=== PATIENT | female | born 1960 | race Caucasian/White ===

== ENCOUNTER 2021-12-22 08:09 | Outpatient (CLI) | payer BC, SELFPAY ==
[2021-12-22 13:40] LABS: Albumin* 4.2 g/dL (3.3-5.0)
[2021-12-22 13:43] LABS: Alanine Aminotransferase* 35 U/L (4-35); Alkaline Phosphatase* 129 U/L (40-150); Aspartate Amino Transferase* 34 U/L (12-35); Bilirubin Direct* 0.3 mg/dL (0.0-0.5); Bilirubin Total* 0.5 mg/dL (0.1-1.5); Total Protein* 7.1 g/dL (6.0-8.3)
[2021-12-22 13:48] LABS: Cholesterol* 190 mg/dL (90-199)
[2021-12-22 13:49] LABS: HDL Cholesterol* 41 mg/dL (>=50); LDL Cholesterol Calculated 110 mg/dL (<100); Triglycerides* 194 mg/dL (40-149)
== END 2021-12-22 08:10 | disposition home or self-care (01) ==
LOC: LKVREF 08:10
PROVIDERS: PCP Family Medicine; Visit Provider Family Medicine
DX: E78.5 Hyperlipidemia, unspecified (principal); R79.89 Other specified abnormal findings of blood chemistry
CPT/HCPCS: 80061; 80076

== ENCOUNTER 2022-03-28 16:46 | Outpatient (CLI) | payer BC, SELFPAY | END 2022-03-28 16:47 | disposition home or self-care (01) | LOC: LKVREF 03-30 11:09 | PROVIDERS: PCP Family Medicine; Visit Provider Emergency Medicine | DX: R30.0 Dysuria (principal); N39.0 Urinary tract infection, site not specified | CPT/HCPCS: 87086; 87186 ==

== ENCOUNTER 2022-05-23 10:25 | Outpatient (CLI) | payer BC, SELFPAY | END 2022-05-23 10:26 | disposition home or self-care (01) | LOC: LKVREF 05-30 13:05 | PROVIDERS: PCP Family Medicine; Visit Provider Nurse Practitioner Family | DX: R30.0 Dysuria (principal); N39.0 Urinary tract infection, site not specified | CPT/HCPCS: 87086 ==

== ENCOUNTER 2022-08-12 10:01 | Outpatient (CLI) | payer BC, SELFPAY ==
--- NOTE | 2022-08-12 10:15 | CRLHL7_ITS ---
For Patients: As a result of the Century Cures Act, medical imaging exams and procedure reports are released immediately into your electronic medical record. You may view this report before your referring provider. If you have questions, please contact your health care provider. BILATERAL SCREENING MAMMOGRAM WITH COMPUTER-AIDED DETECTION AND TOMOSYNTHESIS TECHNIQUE: CC and MLO views were obtained. These mammographic images have been obtained using full-field digital technique. These mammographic images were interpreted with the benefit of computer-aided detection. Breast Tomosynthesis was used in this interpretation. COMPARISON FILM: 05/13/21, 05/11/18, 04/21/17. FINDINGS: There are scattered areas of fibroglandular density IMPRESSION: There is no radiographic evidence for malignancy. ASSESSMENT: BI-RADS Category 1: Negative RECOMMENDATION: Routine screening mammogram in 1 year. A lay language report of this examination will be provided to the patient. Mauro Block M.D. Diagnostic Radiologist [email or web address] MARTINE/Dictated by: Mauro Block MD @ 08/12/2022 1:24:00 PM (Electronically Signed)
== END 2022-08-12 10:02 | disposition home or self-care (01) ==
LOC: MAMMO 10:03
PROVIDERS: PCP Family Medicine; Visit Provider Registered Nurse
DX: Z12.31 Encounter for screening mammogram for malignant neoplasm of breast (principal)
CPT/HCPCS: 77063; 77067

== ENCOUNTER 2022-12-07 17:28 | Outpatient (CLI) | payer BC, SELFPAY | END 2022-12-07 17:29 | disposition home or self-care (01) | LOC: NFLDREF 12-08 11:03 | PROVIDERS: PCP Family Medicine; Referring Provider Family Medicine; Visit Provider Family Medicine | DX: R31.9 Hematuria, unspecified (principal); N39.0 Urinary tract infection, site not specified; N30.01 Acute cystitis with hematuria | CPT/HCPCS: 87086 ==

== ENCOUNTER 2023-01-29 09:08 | Outpatient (CLI) | payer BC, SELFPAY | END 2023-01-29 09:09 | disposition home or self-care (01) | LOC: NFLDREF 01-30 01:06 | PROVIDERS: PCP Family Medicine; Referring Provider Family Medicine; Visit Provider Nurse Practitioner Family | DX: R35.89 Other polyuria (principal); N30.91 Cystitis, unspecified with hematuria | CPT/HCPCS: 87086 ==

== ENCOUNTER 2023-02-02 10:01 | Outpatient (CLI) | payer BC, SELFPAY | END 2023-02-02 10:02 | disposition home or self-care (01) | LOC: LKVREF 10:03 | PROVIDERS: PCP Family Medicine; Visit Provider Family Medicine | DX: Z00.00 Encounter for general adult medical examination without abnormal findings (principal); E78.5 Hyperlipidemia, unspecified; R79.89 Other specified abnormal findings of blood chemistry; R31.9 Hematuria, unspecified | CPT/HCPCS: 80053; 80061 ==

== ENCOUNTER 2023-02-16 08:58 | Outpatient (CLI) | payer BC, SELFPAY | END 2023-02-16 08:59 | disposition home or self-care (01) | LOC: NFLDREF 02-18 20:26 | PROVIDERS: PCP Family Medicine; Referring Provider Family Medicine; Visit Provider Family Medicine | DX: R31.9 Hematuria, unspecified (principal) | CPT/HCPCS: 87086 ==

== ENCOUNTER 2023-03-10 10:26 | Outpatient (CLI) | payer BC, SELFPAY ==
--- NOTE | 2023-03-10 11:25 | W.ANESCHARGE ---
Anesthesia Charges Start Date/Time Anesthesia Start Date: 03/10/23 Anesthesia Start Time: 11:17 Stop Date/Time Anesthesia Stop Date: 03/10/23 Anesthesia Stop Time: 11:40
--- NOTE | 2023-03-10 11:43 | W.ANESCHARGE ---
Anesthesia Charges Start Date/Time Anesthesia Start Date: 03/10/23 Anesthesia Start Time: 11:17 Stop Date/Time Anesthesia Stop Date: 03/10/23 Anesthesia Stop Time: 11:40
== END 2023-03-10 10:27 | disposition home or self-care (01) ==
LOC: OP CLINIC 10:26
PROVIDERS: PCP Family Medicine; Visit Provider Internal Medicine
DX: Z12.11 Encounter for screening for malignant neoplasm of colon (principal); K64.8 Other hemorrhoids; K63.5 Polyp of colon; K57.30 Diverticulosis of large intestine without perforation or abscess without bleeding
CPT/HCPCS: 45380; 811; 88305; J2704

== ENCOUNTER 2023-05-22 14:53 | Outpatient (CLI) | payer BC, SELFPAY | END 2023-05-22 14:54 | disposition home or self-care (01) | LOC: NFLDREF 05-23 06:44 | PROVIDERS: PCP Family Medicine; Referring Provider Family Medicine; Visit Provider Physician Assistant | DX: N39.0 Urinary tract infection, site not specified (principal); R30.0 Dysuria | CPT/HCPCS: 87086; 87186 ==

== ENCOUNTER 2023-06-26 09:21 | Emergency (ER) | payer BC, SELFPAY ==
[2023-06-26] VITALS (9 sets, daily range): BP systolic 125–127; BP diastolic 71–83; PULSE 63–86; RESP 18; TEMP 37.1; O2SAT 93–98; BMI 31.0
--- NOTE | 2023-06-26 09:47 | ED_ITS ---
HPI - General Adult General Time Seen by Provider: 09:47 Date Seen: 06/26/23 Chief complaint: Abdominal Pain Stated complaint: abdominal pain, diarrhea Time Seen by Provider: 06/26/23 09:46 Source: patient and RN notes reviewed Mode of arrival: ambulatory Limitations: no limitations History of Present Illness HPI narrative: This 63-year-old female is ambulatory into the ED with concern of diarrhea starting on . She took Pepto-Bismol on Monday, noted black stools after that but not before. She has had some abdominal cramping, no fevers but has felt chilled at times. She was on antibiotics in May for E coli UTI. She has never had a history of C difficile colitis. Pepto-Bismol did not stop the diarrhea, took Imodium last evening, was up from about 2:30 a.m. overnight with diarrhea. She felt a lot of gurgling while the Imodium was working but then diarrhea ensued again. She states she has really not been able to eat or drink anything since , is feeling weak. Wonders if possibly she might have another urinary tract infection. she has had no travel, no definite known ill contacts or any suspect food. She was wondering if she could be having a GI bleed, did review with her that Pepto-Bismol can certainly turn stools black. she states she has had a little emesis with this but mostly notes that she has had increased reflux and heartburn symptoms during this illness. She states her last colonoscopy was March of 2023 here, remembers it to be normal. She denies any history of abdominal surgery but looking at her chart she has had a history of endometrial ablation, history of left oophorectomy, history of appendectomy. Related Data Home Medications Medication Instructions Recorded Confirmed aspirin 81 mg tablet,delayed 81 mg PO QDAY 05/18/22 06/26/23 release coenzyme Q10 10 mg capsule 10 mg PO ONCE 05/18/22 06/26/23 calcium acetate 1 tab PO DAILY 12/07/22 06/26/23 Previous Rx's Medication Instructions Recorded peg 3350-electrolytes 236 4,000 ml PO DIRECTED #4,000 mL 02/02/23 gram-22.74 gram-6.74 gram-5.86 gram solution (Golytely) rosuvastatin 10 mg tablet 10 mg PO QDAY #90 tabs 02/02/23 Allergies Allergy/AdvReac Type Severity Reaction Status Date / Time No Known Allergies Allergy Unknown Verified 06/26/23 09:35 Review of Systems Status of ROS: Reports: 6 or more systems reviewed and unremarkable except as noted in History and below [facility] Medical History History of vaginal delivery Surgical History History of endometrial ablation (10/15/08) ?Z98.890 - Other specified postprocedural states (ICD-10) Status post biopsy of skin (2017) ?Z98.890 - Other specified postprocedural states (ICD-10) History of left oophorectomy ?Z90.721 - Acquired absence of ovaries, unilateral (ICD-10) History of colonoscopy with polypectomy (2012) ?Z98.890 - Other specified postprocedural states (ICD-10) ?Z86.010 - Personal history of colonic polyps (ICD-10) History of appendectomy ?Z90.49 - Acquired absence of other specified parts of digestive tract (ICD- 10) Family History Maternal Grandmother Breast cancer, Onset Age: 60 Brother Family history of CABG, Onset Age: 59 Family/Other Diabetes Heart disease High cholesterol Father Heart disease High cholesterol High blood pressure Mother Osteoporosis Social History Narrative: tobacco use Smoking Status: Never smoker Do you use any of these nicotine containing products: None How often do you have a drink containing alcohol: never How often do you have six or more drinks on one occasion: Never AUDIT-C Alcohol total score: 0 Non-prescribed substance use: denies use Little interest or pleasure in doing things: not at all Feeling down, depressed, or hopeless: not at all service: No Exam Const: Vital Signs, click to edit/add: Vital Signs - 24 hr 06/26/23 09:28 06/26/23 09:59 06/26/23 10:46 Temperature 98.8 F Pulse Rate 74 Pulse Rate [Pulse Oximeter] 86 Respiratory Rate 18 Blood Pressure Blood Pressure [Ri ght Upper Arm] 127/83 Pulse Oximetry 97 98 93 Oxygen Delivery Me thod Room Air 06/26/23 11:00 06/26/23 11:15 06/26/23 11:30 Temperature Pulse Rate 73 75 73 Pulse Rate [Pulse Oximeter] Respiratory Rate Blood Pressure Blood Pressure [Ri ght Upper Arm] Pulse Oximetry 96 95 96 Oxygen Delivery Me thod 06/26/23 11:45 06/26/23 12:00 06/26/23 12:09 Temperature Pulse Rate 70 64 63 Pulse Rate [Pulse Oximeter] Respiratory Rate Blood Pressure 125/71 Blood Pressure [Ri ght Upper Arm] Pulse Oximetry 95 98 98 Oxygen Delivery Me thod This 63-year-old female is alert, interactive, no apparent distress. She is sitting up on the edge of the bed. Speaking in complete sentences, very pleasant. Well kempt patient. Pupils equal round reactive, sclera clear comes symmetrical facial function. Lips appear normal, not cracked or dry. Oral mucosa however without any exudates or lesions but looks dry, tongue looks dry. Dentition good repair. neck is supple, no adenopathy. Lungs are clear, good air entry, no wheezing or crackles. CV regular rate and rhythm, no murmur, normal S1-S2, no S3-S4. Abdomen is soft, nondistended, somewhat hyperactive bowel sounds but not tympanitic. She has some mild lower abdominal tenderness without rebound or guarding, no organomegaly or masses noted. Skin without any rash or jaundice. Patient was ambulatory into the ED of her own accord. Documenting provider has reviewed patient's vital signs: yes Course Course ED Course: Patient is presenting with diarrhea, no fevers, antibiotic use in May. C difficile colitis is possibility, infectious diarrhea including viral or bacterial is also possibility. She has no fever, does not appear toxic. Will give her some IV hydration with IV fluids. IV normal saline 1 L ordered. Right now she is not feeling nauseated. She is not having any significant pain. Pepto-Bismol is the likely culprit for the dark stools but if stool collected will also check fecal occult blood. Will wait to see lab results prior to any imaging. At this time exam is benign, do not feel like she requires any imaging. Reevaluation(s) Time of Reevaluation #1: 11:34 Reevaluation #1: Reviewed with patient that her white blood count is normal, hemoglobin normal. Her chemistries are reassuring outside of a low bicarb of 18. She is getting a 2 L of fluids which just started, has not felt the need to urinate. We discussed collecting the stool for the fecal occult blood in the C difficile, if she does not have any stool production here, will send these with her to bring back. Given her normal white blood count, benign abdominal exam, I am inclined to not do any CT imaging. We did discuss this and we have decided to avoid radiation at this time, feel that clinical management is best at this time. We do want her to leave a urinalysis however. She is very likely dehydrated and will go with IV fluids until she produces a urinalysis. Vital Signs Vital signs: Initial Vital Signs Temperature 98.8 F 06/26/23 09:28 Temperature Source Temporal Artery Scan 06/26/23 09:28 Pulse Rate 86 06/26/23 09:28 Respiratory Rate 18 06/26/23 09:28 Blood Pressure 127/83 06/26/23 09:28 Blood Pressure Mean 97 06/26/23 09:28 Blood Pressure Position Sitting 06/26/23 09:28 Pulse Oximetry 97 06/26/23 09:28 Oxygen Delivery Method Room Air 06/26/23 09:28 Vital Signs Temperature 98.8 F 06/26/23 09:28 Pulse Rate 86 06/26/23 09:28 Respiratory Rate 18 06/26/23 09:28 Blood Pressure 127/83 06/26/23 09:28 Pulse Oximetry 97 06/26/23 09:28 Oxygen Delivery Method Room Air 06/26/23 09:28 Temperature 98.8 F 06/26/23 09:28 Pulse Rate 63 06/26/23 12:09 Respiratory Rate 18 06/26/23 09:28 Blood Pressure 125/71 06/26/23 12:09 Pulse Oximetry 98 06/26/23 12:09 Oxygen Delivery Method Room Air 06/26/23 09:28 Medications Administered Medications: Discontinued Medications Generic Name Dose Route Start Last Admin Trade Name Freq PRN Reason Stop Dose Admin Sodium Chloride 1,000 mls @ 1,000 mls/hr 06/26/23 10:00 06/26/23 11:28 0.9 % Sodium Chloride 1000 Ml IV 02/26/24 10:59 Infused .Q1H LETA Infusion Lactated Ringer's 1,000 mls @ 1,000 mls/hr 06/26/23 11:06 06/26/23 12:41 Lactated Ringers 1000 Ml IV 06/26/23 12:05 Infused .Q1H ONE Infusion Medical Decision Making Lab Data Lab results reviewed: Yes I reviewed the patient's lab results Labs: Lab Results 06/26/23 06/26/23 Range/Units 10:12 12:20 WBC 8.87 (4.50-11.00) K/uL RBC 5.27 H (4.00-5.20) m/uL Hgb 14.5 (12.0-16.0) gm/dL Hct 44.6 (33.0-51.0) % MCV 85 (80-100) fL MCH 28 (26-34) pg MCHC 33 (32-36) gm/dL RDW Coeff of Ana 12.8 (11.5-15.5) % Plt Count 256 (140-440) K/uL Neut % (Auto) 67.4 (42.0-72.0) % Lymph % (Auto) 23.9 (20-44) % Young % (Auto) 6.1 (0.0-11.0) % Eos % (Auto) 2.4 (0.0-7.0) % Baso % (Auto) 0.1 (0.0-3.0) % Neut # (Auto) 5.98 (1.7-7.0) K/uL Lymph # (Auto) 2.12 (0.90-2.90) K/uL Young # (Auto) 0.50 (0.00-0.90) K/UL Eos # (Auto) 0.21 (0.00-0.50) K/uL Baso # (Auto) 0.01 (0.00-0.30) K/uL Abs Immat Gran (auto) 0.01 (0.00-0.30) K/uL Imm/Tot Granulo (auto) 0.1 % Sodium 140 (135-149) mmol/L Potassium 3.9 (3.6-5.1) mmol/L Chloride 108 (96-114) mmol/L Carbon Dioxide 18 L (20-32) mmol/L Anion Gap 14 (7-15) mEq/L BUN 20 (7-30) mg/dL Creatinine 0.7 (0.5-1.5) mg/dL Estimated Creat Clear 48.25 Estimated GFR 98 ml/min Glucose 101 (60-115) mg/dL Lactate 1.2 (0.5-1.9) mmol/L Calcium 9.3 (8.4-10.6) mg/dL Total Bilirubin 0.5 (0.1-1.5) mg/dL AST 38 H (12-35) U/L ALT 46 H (4-35) U/L Alkaline Phosphatase 104 (40-150) U/L C-Reactive Protein < 0.5 L (0.5-1.0) mg/dL Total Protein 8.0 (6.0-8.3) g/dL Albumin 4.8 (3.3-5.0) g/dL Urine Color Yellow (Yellow) Urine Appearance Cloudy A (Clear) Urine pH 6.0 (5.0-8.5) Ur Specific [place] 1.010 (1.000-1.030) Urine Protein Negative (Negative) Urine Glucose (UA) Negative (Negative) Urine Ketones Negative (Negative) Urine Blood Trace-intact A (Negative) Urine Nitrite Negative (Negative) Urine Bilirubin Negative (Negative) Urine Urobilinogen 0.2 (0.2-1.0) Ur Leukocyte Esterase 3+ A (Negative) Urine RBC 0-2 (0-2) Urine WBC 25-50 A (0-5) Ur Squamous Epith Cells Moderate A (None-Few) Urine Bacteria Few A (None) Urine Mucus Few A (None) UA reviewed, await urine culture. Given moderate squamous epithelial cells, active current diarrhea, feel it is best approached with confirming urine culture 1st. Discharge Plan Discharge Clinical Impression: Acute dehydration, Acute diarrhea Patient Disposition: Home, Self-Care Condition: Stable Instructions: Acute Diarrhea (ED), Nutrition Tips for Relief of Diarrhea (ED) Additional Instructions: Collect the stool studies that were sent with you, bring back to your clinic or to the hospital lab to have them run. If the C difficile or fecal occult bladder positive, we will contact you with further instructions. Ultimately, if the C difficile comes back positive, you need oral vancomycin. If your fecal occult blood is positive, have you talk to your primary care provider, could be associated with the diarrhea. You report a recent normal colonoscopy which is reassuring. Hopefully the diarrhea will start to improve over the next couple days. If these stool tests are negative and you continue to have diarrhea, need to follow up in clinic, may need further tests such as possible colonoscopy and further stool studies. If you develop severe abdominal pain, bloody diarrhea, have recurrent dehydration again, please return to the ER for further evaluation. Activity Level: Activity as Tolerated Prescriptions: No Action aspirin 81 mg tablet,delayed release (DR/EC) 81 mg PO QDAY coenzyme Q10 10 mg capsule 10 mg PO ONCE calcium acetate 1 tab PO DAILY peg 3350-electrolytes [Golytely] 236-22.74-6.74 -5.86 gram recon soln 4,000 ml PO DIRECTED Qty: 4000 0RF Rx Instructions: 1 day prior to scopes, between 4 and 6 p.m., drink 8 oz glass every 15 minutes until half a gallon is gone. 6 hours prior to procedure, drink 8 oz glass every 15 minutes until second half gallon is gone. rosuvastatin 10 mg tablet 10 mg PO QDAY Qty: 90 3RF Follow Up/Referrals: Bobby Montoya MD [Primary Care Provider] - Stand Alone Forms: [employer] Info Instructions
[2023-06-26 10:19] LABS: Lactate* 1.2 mmol/L (0.5-1.9)
[2023-06-26 10:22] LABS: Basophils Absolute Auto 0.01 K/uL (0.00-0.30); Basophils Percent Auto 0.1 % (0.0-3.0); Eosinophils Absolute Auto 0.21 K/uL (0.00-0.50); Eosinophils Percent Auto 2.4 % (0.0-7.0); Hematocrit 44.6 % (33.0-51.0); Hemoglobin* 14.5 gm/dL (12.0-16.0); Immature Granulocytes Abs Auto 0.01 K/uL (0.00-0.30); Immature Granulocytes Pct Auto 0.1 %; Lymphocytes Absolute Auto 2.12 K/uL (0.90-2.90); Lymphocytes Percent Auto 23.9 % (20-44); Mean Corpuscular HGB Conc 33 gm/dL (32-36); Mean Corpuscular Hemoglobin 28 pg (26-34); Mean Corpuscular Volume 85 fL (80-100); Monocytes Percent Auto 6.1 % (0.0-11.0); Neutrophils Absolute Auto 5.98 K/uL (1.7-7.0); Neutrophils Percent Auto 67.4 % (42.0-72.0); Platelet Count* 256 K/uL (140-440); RDW Coefficient of Variation % 12.8 % (11.5-15.5); Red Blood Count 5.27 m/uL (4.00-5.20); White Blood Count* 8.87 K/uL (4.50-11.00)
[2023-06-26] MEDS: 0.9 % SODIUM CHLORIDE 1000 ml 1,000 ML IV (10:23)
[2023-06-26 10:27] LABS: Slide Review Reflex No
[2023-06-26 10:36] LABS: Chloride* 108 mmol/L (96-114)
[2023-06-26 10:37] LABS: Albumin* 4.8 g/dL (3.3-5.0); Potassium* 3.9 mmol/L (3.6-5.1); Sodium* 140 mmol/L (135-149)
[2023-06-26 10:39] LABS: Creatinine* 0.7 mg/dL (0.5-1.5); Est. Creatinine Clearance* 48.25; Estimated Glomerular Filt Rate 98 ml/min
[2023-06-26 10:40] LABS: Alanine Aminotransferase* 46 U/L (4-35); Alkaline Phosphatase* 104 U/L (40-150); Anion Gap 14 mEq/L (7-15); Aspartate Amino Transferase* 38 U/L (12-35); Bilirubin Total* 0.5 mg/dL (0.1-1.5); Blood Urea Nitrogen* 20 mg/dL (7-30); Carbon Dioxide* 18 mmol/L (20-32); Glucose* 101 mg/dL (60-115)
[2023-06-26 10:41] LABS: Calcium* 9.3 mg/dL (8.4-10.6)
[2023-06-26 10:48] LABS: C Reactive Protein* < 0.5 mg/dL (0.5-1.0)
[2023-06-26] MEDS: LACTATED RINGERS 1000 ML 1,000 ML IV (11:30)
[2023-06-26 12:40] LABS: Appearance Urine Cloudy (Clear); Bilirubin Urine Negative (Negative); Blood Urine Trace-intact (Negative); Color Urine Yellow (Yellow); Glucose Urine Negative (Negative); Ketones Urine Negative (Negative); Leukocyte Esterase Urine 3+ (Negative); Nitrite Urine Negative (Negative); Protein Urine Negative (Negative); Urobilinogen Urine 0.2 (0.2-1.0)
--- NOTE | 2023-06-26 12:42 | ED.NURSE ---
Pt provided stool sample collection kit and education on use. Pt agrees to bring stool sample back to lab, as soon as able.
[2023-06-26 12:47] LABS: Bacteria Urine Few; RBC Urine 0-2 (0-2); Squamous Epithelial Cell Urine Moderate (None-Few); WBC Urine 25-50 (0-5)
[2023-06-26 12:48] LABS: Mucus Urine Few
[2023-06-29 14:04] LABS: Fecal Occult Blood* Negative (Negative)
[2023-06-29 14:35] LABS: C.Difficile Negative (Negative); CDIFFEPI 027 PRESUMPTIVE NEGATIVE (Negative)
== END 2023-06-26 12:57 | disposition home or self-care (01) ==
PROVIDERS: Emergency Provider Family Medicine; PCP Family Medicine
DX: E86.0 Dehydration (principal); R19.7 Diarrhea, unspecified
CPT/HCPCS: 36415; 80053; 81001; 82270; 83605; 85025; 86140; 87086; 87493; 94761; 96360; 96361; 99284; J7030; J7120

== ENCOUNTER 2023-10-26 09:22 | Outpatient (CLI) | payer BC, SELFPAY ==
--- NOTE | 2023-10-26 09:45 | CRLHL7_ITS ---
For Patients: As a result of the Century Cures Act, medical imaging exams and procedure reports are released immediately into your electronic medical record. You may view this report before your referring provider. If you have questions, please contact your health care provider. BILATERAL SCREENING MAMMOGRAM WITH COMPUTER-AIDED DETECTION AND TOMOSYNTHESIS TECHNIQUE: CC and MLO views were obtained. These mammographic images have been obtained using full-field digital technique. These mammographic images were interpreted with the benefit of computer-aided detection. Breast Tomosynthesis was used in this interpretation. COMPARISON FILM: 08/12/22, 05/13/21, 05/11/18. FINDINGS: There are scattered areas of fibroglandular density. IMPRESSION: There is no radiographic evidence for malignancy. ASSESSMENT: BI-RADS Category 1: Negative RECOMMENDATION: Routine screening mammogram in 1 year. A lay language report of this examination will be provided to the patient. Mauro Block M.D. Diagnostic Radiologist [email or web address] SP/Dictated by: Mauro Block MD @ 11/01/2023 11:07:00 AM (Electronically Signed)
== END 2023-10-26 09:23 | disposition home or self-care (01) ==
LOC: MAMMO 09:22
PROVIDERS: PCP Family Medicine; Visit Provider Registered Nurse
DX: Z12.31 Encounter for screening mammogram for malignant neoplasm of breast (principal)
CPT/HCPCS: 77063; 77067

== ENCOUNTER 2023-10-30 10:30 | Outpatient (CLI) | payer BC, SELFPAY | END 2023-10-30 10:31 | disposition home or self-care (01) | LOC: NFLDREF 11-02 02:38 | PROVIDERS: PCP Family Medicine; Referring Provider Family Medicine; Visit Provider Family Medicine | DX: N30.01 Acute cystitis with hematuria (principal) | CPT/HCPCS: 87086 ==

== ENCOUNTER 2024-01-26 11:25 | Outpatient (CLI) | payer BC, SELFPAY | END 2024-01-26 11:26 | disposition home or self-care (01) | PROVIDERS: PCP Family Medicine; Visit Provider Family Medicine | DX: E78.5 Hyperlipidemia, unspecified (principal); I10 Essential (primary) hypertension; R79.89 Other specified abnormal findings of blood chemistry; R53.83 Other fatigue; Z13.29 Encounter for screening for other suspected endocrine disorder | CPT/HCPCS: 80053; 80061; 84443 ==

== ENCOUNTER 2024-04-04 11:05 | Outpatient (CLI) | payer BC, SELFPAY ==
--- NOTE | 2024-04-04 11:15 | CRLHL7_ITS ---
For Patients: As a result of the Century Cures Act, medical imaging exams and procedure reports are released immediately into your electronic medical record. You may view this report before your referring provider. If you have questions, please contact your health care provider. INDICATION: PADGETT COMPARISON: 09/22/2021 TECHNIQUE: Real time shepherd scale imaging and color Doppler analysis was performed of the right upper quadrant. FINDINGS: The patient`s liver is of normal size and has diffusely increased and coarsened echogenicity. There is a normal appearance of the hepatic IVC and proximal abdominal aorta. There is no evidence of ascites. The gallbladder is of normal size and there is no evidence of intraluminal stones or sludge. The gallbladder wall measures 1.6 mm in thickness. The common bile duct is of normal size and measures 4.1 mm in diameter at the level of the abner hepatis. The pancreas appears heterogeneous. There is no evidence of a stone or hydronephrosis within the right kidney. The right kidney measures 10.4 cm in length. IMPRESSION: Moderately severe diffuse hepatic steatosis without intrahepatic mass or ascites. Dictated by Mauro Block MD @ 04/05/2024 9:11:41 AM (Electronically Signed)
== END 2024-04-04 11:06 | disposition home or self-care (01) ==
LOC: US 11:06
PROVIDERS: PCP Family Medicine; Visit Provider Family Medicine
DX: K75.81 Nonalcoholic steatohepatitis (NASH) (principal); K76.0 Fatty (change of) liver, not elsewhere classified
CPT/HCPCS: 76705

== ENCOUNTER 2024-08-21 15:20 | Outpatient (CLI) | payer BC, SELFPAY | END 2024-08-21 15:21 | disposition home or self-care (01) | PROVIDERS: PCP Family Medicine; Visit Provider Registered Nurse | DX: R53.83 Other fatigue (principal); G47.9 Sleep disorder, unspecified; I10 Essential (primary) hypertension; R79.89 Other specified abnormal findings of blood chemistry | CPT/HCPCS: 80076; 82306; 84443 ==

== ENCOUNTER 2024-09-17 13:40 | Outpatient (CLI) | payer BC, SELFPAY | END 2024-09-17 13:41 | disposition home or self-care (01) | LOC: NFLDREF 09-24 18:43 | PROVIDERS: PCP Family Medicine; Referring Provider Family Medicine; Visit Provider Physician Assistant | DX: N30.01 Acute cystitis with hematuria (principal); B95.7 Other staphylococcus as the cause of diseases classified elsewhere | CPT/HCPCS: 87086; 87186 ==

== ENCOUNTER 2024-09-29 18:53 | Emergency (ER) | payer BC, SELFPAY ==
--- OUTSIDE RECORDS SUMMARY | 2024-09-29 18:56 | XMS_ITS | Clinical Summary ---
Author Organization [facility] Address [address] [place] [id number] Care Team Providers Care Investment Advisor Name Role Phone Unavailable Primary Care Provider Unavailabl e Allergies No known active allergies Medications rosuvastatin (CRESTOR) 10 mg tablet Take 10 mg by mouth once daily. 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 Gender Identity Not on file Sexual Orientation Not on file Obstetrics History Last Filed Vital Signs Vital Sign Reading Time Taken Comments Blood Pressure 143/83 07/28/2022 10:27 AM CDT Pulse 73 07/28/2022 10:06 AM CDT Temperature 36.6 C (97.8 F) 07/28/2022 10:06 AM CDT Respiratory Rate 16 07/28/2022 10:06 AM CDT Oxygen Saturation 96% 07/28/2022 10:06 AM CDT Inhaled Oxygen Concentration - - Weight 77.1 kg (170 lb) 07/28/2022 10:06 AM CDT Height 160 cm (5' 3) 07/28/2022 10:06 AM CDT Body Mass Index 30.11 07/28/2022 10:06 AM CDT Plan of Treatment Health Maintenance Due Date Last Done Comments Tdap 1972 Depression screening for age 12+ 1973 Tetanus booster 1981 Colonoscopy through age 75 2006 Lipids for age 45-75 2006 Mammogram for age 45-75 2006 Pneumococcal series for age 50+ (1 of 1 - PCV) 2011 Zoster (shingles) series for age 50+ (1 of 2) 2011 BMI (ht and wt on same day) for age 18+ 07/29/2023 07/28/2022 COVID-19 vaccine series ( - season) 2023 03/18/2022, 09/19/2021, 02/09/2021 Influenza Vaccine (Season Ended) 2024 Pap test for age 21-65 08/02/2026 , 08/03/2023, 03/21/2018, Additional history exists RSV vaccine for adults or (1 - 1-dose 75+ series) 2036 HIV for age 15-65 Completed 07/28/2022 Hepatitis C screening for age 18-79 Completed 07/28/2022 Hepatitis B series for 19+ Aged Out N o longer eligible based on patient's age to complete this topic Procedures Procedure Name Priority Date/Time Associated Diagnosis Comments HPV HIGH RISK Routine 08/03/2023 3:00 PM CDT LC HIV-1/O/2, 4TH GENERATION Routine 07/28/2022 11:02 AM CDT Exposure to blood or body fluid LC HCV ANTIBODY RFX TO QUANT PCR Routine 07/28/2022 11:02 AM CDT Exposure to blood or body fluid from Last 3 Months or Most Recently Relevant to Health Maintenance Results * HPV HIGH RISK (08/03/2023 3:00 PM CDT) TYPE 16 Negative Negative 08/08/2023 2:22 PM CDT [facility] TYPE 18 Negative Negative 08/08/2023 2:22 PM CDT [facility] OTHER HIGH RISK TYPES Negative Negative 08/08/2023 2:22 PM CDT [facility] Other (Cervical) 08/03/2023 3:00 PM CDT 08/07/2023 9:51 AM CDT Narrative [facility] - 08/08/2023 2:22 PM CDT HPV types 16, 18, 31, 33, 35, 39, 45, 51, 52, 56, 58, 59, 66 and 68 DNA were undetectable or below the pre-set threshold. Methodology: Marco Antonio Yamileth 4800 HPV Test us Anu Weathers NP MICROBIOLOGY Final Res ult [facility] [address] [place] [address], [place] * LC HCV ANTIBODY RFX TO QUANT PCR (07/28/2022 11:02 AM CDT) HCV Ab Non Reactive Non Reactive 07/31/2022 11:08 AM CDT [facility] ([facility] Blood BLOOD SPECIMEN / Unknown Venipuncture / Unknown 07/28/2022 11:02 AM CDT 07/28/2022 11:05 AM CDT Narrative [facility] ([facility]) - 07/31/2022 11:08 AM CDT Performed at: [address] [place] [id number] Concrete Fence Builder: Jaskaran Capone MD, Phone: [phone] [facility] Final Resu lt [facility] ([facility]) [address] [place] [id number], [place] * LC HIV-1/O/2, 4TH GENERATION (07/28/2022 11:02 AM CDT) HIV Scr 4th Gen Non Reactive Non Reactive 08/02/2022 12:06 AM CDT [facility] ([facility] Comment: HIV Negative HIV-1/HIV-2 antibodies and HIV-1 p24 antigen were NOT detected. There is no laboratory evidence of HIV infection. Blood BLOOD SPECIMEN / Unknown Venipuncture / Unknown 07/28/2022 11:02 AM CDT 07/28/2022 11:05 AM CDT Narrative [facility] ([facility]) - 08/02/2022 12:06 AM CDT Performed at: [address] [id number] Concrete Fence Builder: Jaskaran Capone MD, Phone: [phone] [facility] Final Resu lt [facility] ([facility]) [address] [place] [address], from Last 3 Months or Most Recently Relevant to Health Maintenance Insurance [employer]
[2024-09-29 19:02] VITALS: BP 146/80; PULSE 76; RESP 18; TEMP 36.7; O2SAT 98; BMI 31.9
--- NOTE | 2024-09-29 19:13 | ED_ITS ---
HPI - Female Genitourinary General Chief complaint: Urogenital Problems, Female Stated complaint: UTI concerns Time Seen by Provider: 09/29/24 18:56 History of Present Illness HPI Narrative: This 64-year-old female comes in with dysuria symptoms including increased frequency, pain with voiding, and sense of urgency. These symptoms began today. She was recently treated for a urinary tract infection and completed Keflex about 6 days ago. She was feeling back to normal until today. Related Data Home Medications ?Medication ?Instructions ?Recorded ?Confirmed aspirin 81 mg tablet,delayed 81 mg PO QDAY 05/18/22 release coenzyme Q10 10 mg capsule 10 mg PO ONCE 05/18/2208/30 cranberry fruit 475 mg capsule 475 mg PO ONCE 08/21/24 09/17/24 Previous Rx's ?Medication ?Instructions ?Recorded rosuvastatin 10 mg tablet 10 mg PO QDAY #90 tabs 02/04 losartan 50 mg tablet 50 mg PO QDAY #90 tabs 03/08 Allergies Allergy/AdvReac Type Severity Reaction Status Date / Time No Known Allergies Allergy Unknown Verified 08/21/24 09:44 Review of Systems Status of ROS: Reports: 10 or more systems reviewed and unremarkable except as noted in History and below Narrative: Constitutional: No fevers, no weight gain or loss. Eyes: No discharge. No vision changes. HENT: No congestion, no sore throat, no ear pain. Cardiovascular: No chest pain, no palpitations. Respiratory: No shortness of breath, no wheezes, no cough. Gastrointestinal: No abdominal pain, no vomiting, no diarrhea. Genitourinary: Dysuria symptoms as described above. Musculoskeletal: Normal range of motion. Skin: No rashes, no pruritis. Neurological: No dizziness, weakness, sensory change, speech change. Endo/Heme/Allergies: No bruising or bleeding. No polydipsia. Pysch: no suicidality, no anxiety, no insomnia. All other systems reviewed and are negative. [facility] [place] Medical History PADGETT (nonalcoholic steatohepatitis) ?K75.81 - Nonalcoholic steatohepatitis (PADGETT) (ICD-10) Obesity ?E66.9 - Obesity, unspecified (ICD-10) HTN (hypertension) ?I10 - Essential (primary) hypertension (ICD-10) Surgical History History of endometrial ablation (10/15/08) ?Z98.890 - Other specified postprocedural states (ICD-10) Status post biopsy of skin (2017) ?Z98.890 - Other specified postprocedural states (ICD-10) History of left oophorectomy ?Z90.721 - Acquired absence of ovaries, unilateral (ICD-10) History of colonoscopy with polypectomy (2012) ?Z98.890 - Other specified postprocedural states (ICD-10) ?Z86.010 - Personal history of colonic polyps (ICD-10) History of appendectomy ?Z90.49 - Acquired absence of other specified parts of digestive tract (ICD- 10) Family History Maternal Grandmother Breast cancer, Onset Age: 60 Brother Family history of CABG, Onset Age: 59 Family/Other Diabetes Heart disease High cholesterol Father Heart disease High cholesterol High blood pressure Mother Osteoporosis Social History Narrative: tobacco use What is your current living situation?: I presently have a place to live In the past 12 months, utilities in danger of being shut off: no In past 12 months, lack of transportation kept you from medical appts, meetings, work, or getting things needed for daily living: no In the past 12 mos, have been you worried that your food would run out before you had money to buy more?: never true In the past 12 mos, the food you bought just didn't last and you didn't have money to buy more?: never true Smoking Status: Never smoker Do you use any of these nicotine containing products: None How often do you have a drink containing alcohol: never How often do you have six or more drinks on one occasion: Never AUDIT-C Alcohol total score: 0 Non-prescribed substance use: denies use How often does anyone, including family, friends and others, physically hurt you : never How often does anyone, including family, friends and others, insult or talk down to you: never How often does anyone, including family, friends and others, threaten you with harm: never How often does anyone, including family, friends and others, scream or curse at you: never service: No Exam Narrative: Exam Narrative: Constitutional: Well-developed, well-nourished, no acute distress. HEENT: Normocephalic, atraumatic. Neck: Normal range of motion. Nontender. Supple. Heart: Intact distal pulses. Lungs: No chest discomfort. No wheezes, rhonchi, or rales. Abdomen: Nontender. Back: Normal range of motion. Extremities: Normal range of motion. No injury. Skin: Intact. No rash. Warm. No erythema or pallor. Neurologic: No altered sensation. No weakness. Alert and oriented. Psychiatric: No suicidality. No anxiety or depression. No insomnia. Nursing notes and vitals signs are reviewed. Const: Vital Signs, click to edit/add: Vital Signs - 24 hr 09/29/24 19:02 Temperature 98.1 F Pulse Rate [Pulse Oximeter] 76 Respiratory Rate 18 Blood Pressure [Ri ght Upper Arm] 146/80 H Pulse Oximetry 98 Oxygen Delivery Me thod Room Air Course Vital Signs Vital signs: Initial Vital Signs Temperature 98.1 F 09/29/24 19:02 Temperature Source Temporal Artery Scan 09/29/24 19:02 Pulse Rate 76 09/29/24 19:02 Respiratory Rate 18 09/29/24 19:02 Blood Pressure 146/80 H 09/29/24 19:02 Blood Pressure Mean 102 09/29/24 19:02 Blood Pressure Position Sitting 09/29/24 19:02 Pulse Oximetry 98 09/29/24 19:02 Oxygen Delivery Method Room Air 09/29/24 19:02 Vital Signs Temperature 98.1 F 09/29/24 19:02 Pulse Rate 76 09/29/24 19:02 Respiratory Rate 18 09/29/24 19:02 Blood Pressure 146/80 H 09/29/24 19:02 Pulse Oximetry 98 09/29/24 19:02 Oxygen Delivery Method Room Air 09/29/24 19:02 Temperature 98.1 F 09/29/24 19:02 Pulse Rate 76 09/29/24 19:02 Respiratory Rate 18 09/29/24 19:02 Blood Pressure 146/80 H 09/29/24 19:02 Pulse Oximetry 98 09/29/24 19:02 Oxygen Delivery Method Room Air 09/29/24 19:02 MDM - Female Genitourinary MDM Narrative Medical decision making narrative: This patient comes in with dysuria symptoms that began today. She finished treatment for urinary tract infection 6 days ago. She does not have history of frequent recurrent infections. I did review culture and sensitivity report from her previous infection. This was a staph infection that was sensitive to everything tested except tetracycline. Today the patient's urinalysis shows evidence of infection again and of course culture and sensitivity reports are not yet available for this urinalysis. The patient is okay to return home. I did provide a prescription from [facility] for doxycycline. This medicine was affective for her most recent infection in case that happens to be recurrent infection with that same pathogen. Lab Data Labs: Lab Results 09/29/24 Range/Units 19:15 Urine Color Yellow (Yellow) Urine Appearance Clear (Clear) Urine pH 5.5 (5.0-8.5) Ur Specific [place] >= 1.030 (1.000-1.030) Urine Protein Negative (Negative) Urine Glucose (UA) Negative (Negative) Urine Ketones Negative (Negative) Urine Blood Trace-intact A (Negative) Urine Nitrite Negative (Negative) Urine Bilirubin Negative (Negative) Urine Urobilinogen 0.2 (0.2-1.0) Ur Leukocyte Esterase 1+ A (Negative) Urine RBC 10-25 A (0-2) Urine WBC 10-25 A (0-5) Ur Squamous Epith Cells Few (None-Few) Urine Bacteria None (None) Discharge Plan Discharge Clinical Impression: Urinary tract infection Patient Disposition: Home, Self-Care Condition: Unchanged Additional Instructions: Take medication as prescribed. Drink plenty of fluids. Follow up with MD return if symptoms are persistent or worsening. Prescriptions: No Action aspirin 81 mg tablet,delayed release (DR/EC) 81 mg PO QDAY coenzyme Q10 10 mg capsule 10 mg PO ONCE losartan 50 mg tablet 50 mg PO QDAY Qty: 90 3RF cranberry fruit 475 mg capsule 475 mg PO ONCE Rx Instructions: give with meal/snack rosuvastatin 10 mg tablet 10 mg PO QDAY Qty: 90 3RF Follow Up/Referrals: Bobby Montoya MD [Primary Care Provider, Family Practice] Stand Alone Forms: [employer] Info Instructions
[2024-09-29 19:21] LABS: Appearance Urine Clear (Clear); Bilirubin Urine Negative (Negative); Blood Urine Trace-intact (Negative); Color Urine Yellow (Yellow); Glucose Urine Negative (Negative); Ketones Urine Negative (Negative); Leukocyte Esterase Urine 1+ (Negative); Nitrite Urine Negative (Negative); Protein Urine Negative (Negative); Specific Gravity Urine >= 1.030 (1.000-1.030); Urobilinogen Urine 0.2 (0.2-1.0); pH Urine 5.5 (5.0-8.5)
[2024-09-29 19:52] LABS: Squamous Epithelial Cell Urine Few (None-Few)
== END 2024-09-29 20:19 | disposition home or self-care (01) ==
PROVIDERS: Emergency Provider Emergency Medicine Emergency Medical Services; PCP Family Medicine
DX: N39.0 Urinary tract infection, site not specified (principal)
CPT/HCPCS: 81001; 87086; 99283; 99284

== ENCOUNTER 2024-11-06 13:42 | Outpatient (CLI) | payer BC, SELFPAY ==
--- NOTE | 2024-11-06 14:00 | CRLHL7_ITS ---
For Patients: As a result of the Century Cures Act, medical imaging exams and procedure reports are released immediately into your electronic medical record. You may view this report before your referring provider. If you have questions, please contact your health care provider. INDICATION: BILATERAL SCREENING MAMMOGRAM, ASYMPTOMATIC 64 Y/O FEMALE COMPARISON: 10/26/2023, 08/12/2022, 05/13/2021 TECHNIQUE: Digital mammogram in CC and MLO projections including computer-aided detection (CAD) and tomosynthesis. BREAST COMPOSITION: There are scattered areas of fibroglandular density. FINDINGS: No suspicious findings. ASSESSMENT: BI-RADS 1 Negative RECOMMENDATION: Annual screening mammogram. A lay language report of this examination will be provided to the patient. Dictated by: Mauro Block MD @ 11/07/2024 08:16:17 (Electronically Signed)
== END 2024-11-06 13:43 | disposition home or self-care (01) ==
LOC: MAMMO 13:42
PROVIDERS: PCP Family Medicine; Visit Provider Family Medicine
DX: Z12.31 Encounter for screening mammogram for malignant neoplasm of breast (principal)
CPT/HCPCS: 77063; 77067

== ENCOUNTER 2025-02-21 09:30 | Outpatient (CLI) | payer BC, SELFPAY | END 2025-02-21 09:31 | disposition home or self-care (01) | PROVIDERS: PCP Family Medicine; Referring Provider Family Medicine; Visit Provider Family Medicine | DX: R30.9 Painful micturition, unspecified (principal); R53.83 Other fatigue; E78.5 Hyperlipidemia, unspecified; I10 Essential (primary) hypertension; R79.89 Other specified abnormal findings of blood chemistry | CPT/HCPCS: 80053; 80061; 82306; 87086 ==